=== PATIENT | male | born 2000 | race Caucasian/White ===

== ENCOUNTER 2020-11-10 17:05 | Emergency (ER) | payer OTHER ==
[~2020-11-10] VITALS: Ht 190.5 cm; Wt 112.0 kg
[2020-11-10] MEDS ORDERED: ACETAMINOPHEN 500 MG TAB PO ONE (20:20)
[2020-11-10] MEDS ORDERED: NS 1,000 ML IV ONE (20:20)
[2020-11-10] MEDS ORDERED: METOCLOPRAMIDE INJ 10MG/2ML VIAL (J2765 PER 1) IV ONE (20:20)
[2020-11-10 21:00] VITALS: BP 143/72
[2020-11-10 21:02] LABS: BASO % 0.3 % (0.0-1.0); EOS % 1.1 % (0.0-3.0); HEMATOCRIT 49.6 % (42.0-52.0); HEMOGLOBIN 17.4 g/dl (13.5-17.5); LYMPH # 1.4 10^3/uL (1.5-5.0); LYMPH % 39.4 % (24.0-44.0); MEAN CORPUSCULAR HGB CONC 35.1 g/dl (32.0-36.5); MEAN CORPUSCULAR VOLUME 88.4 fl (80.0-96.0); MONO # 0.3 10^3/uL (0.0-0.8); NEUTROPHILS # 1.8 10^3/uL (1.5-8.5); NEUTROPHILS % 50.9 % (36.0-66.0); PLATELET COUNT, AUTOMATED 170 10^3/uL (150-450); RED BLOOD COUNT 5.61 10^6/uL (4.30-6.10); WHITE BLOOD COUNT 3.5 10^3/uL (4.0-10.0)
[2020-11-10 21:10] LABS: INR 0.98; PROTHROMBIN TIME 13.4 SECONDS (12.7-14.5)
[2020-11-10 21:11] LABS: PARTIAL THROMBOPLASTIN TIME 32.8 SECONDS (25.9-37.0)
[2020-11-10 21:13] LABS: D-DIMER QUANT 288.2 ng/ml (<500)
[2020-11-10 21:36] LABS: ALBUMIN 4.1 GM/DL (3.2-5.2); ALT/SGPT 48 U/L (12-78); BILIRUBIN,DIRECT 0.2 MG/DL (0.0-0.2); BILIRUBIN,TOTAL 0.9 MG/DL (0.2-1.0); BLOOD UREA NITROGEN 14 MG/DL (7-18); CALCIUM LEVEL 8.5 MG/DL (8.5-10.1); CARBON DIOXIDE LEVEL 30 MEQ/L (21-32); CHLORIDE LEVEL 106 MEQ/L (98-107); CREATININE FOR GFR 1.01 MG/DL (0.70-1.30); GLOMERULAR FILTRATION RATE > 60.0 (>60); GLUCOSE, FASTING 99 MG/DL (70-100); LIPASE 70 U/L (73-393); POTASSIUM SERUM 4.3 MEQ/L (3.5-5.1); SODIUM LEVEL 141 MEQ/L (136-145)
[2020-11-10 21:42] LABS: MONO REFLEX EBV COMP NEGATIVE (NEGATIVE)
[2020-11-10 21:59] VITALS: O2SAT 96
--- NOTE | 2020-11-10 21:59 | REPVR ---
PROCEDURE INFORMATION: Exam: XR Chest Exam date and time: 11/10/2020 8:56 PM Age: 20 years old Clinical indication: Shortness of breath; Additional info: Decreased rll, cough x 1 week TECHNIQUE: Imaging protocol: XR of the chest. Views: 2 views. COMPARISON: No relevant prior studies available. FINDINGS: Lungs: Unremarkable. No consolidation. Pleural spaces: Unremarkable. No pleural effusion. No pneumothorax. Heart/Mediastinum: Unremarkable. No cardiomegaly. Bones/joints: Unremarkable. IMPRESSION: No acute findings. Electronically signed by: Lokesh Marino On 11/10/2020 21:59:13 PM
--- NOTE | 2020-11-10 22:00 | REPVR ---
PROCEDURE INFORMATION: Exam: XR Abdomen Exam date and time: 11/10/2020 8:56 PM Age: 20 years old Clinical indication: Nausea and vomiting; Additional info: Decreased bowel sounds, n/v TECHNIQUE: Imaging protocol: XR of the abdomen. Views: Frontal supine view of the abdomen. 1 View. COMPARISON: No relevant prior studies available. FINDINGS: Gastrointestinal tract: Normal. No bowel dilation. Bones/joints: Unremarkable. Incomplete fusion of the right L1 transverse process. IMPRESSION: No acute findings. Electronically signed by: Lokesh Marino On 11/10/2020 21:59:39 PM
[2020-11-13 17:08] LABS: EBV VIRAL CAPSID AG IgM <36.0 U/mL (0.0-35.9); Lyme Disease IgG Ab 18 kDa Ban Absent (.); Lyme Disease IgG Ab 23 kDa Ban Absent (.); Lyme Disease IgG Ab 28 kDa Ban Absent (.); Lyme Disease IgG Ab 30 kDa Ban Absent (.); Lyme Disease IgG Ab 39 kDa Ban Absent (.); Lyme Disease IgG Ab 41 kDa Ban Absent (.); Lyme Disease IgG Ab 45 kDa Ban Absent (.); Lyme Disease IgG Ab 58 kDa Ban Absent (.); Lyme Disease IgG Ab 66 kDa Ban Absent (.); Lyme Disease IgG Ab 93 kDa Ban Absent (.); Lyme Disease IgG West Blot Int Negative (.); Lyme Disease IgG/IgM Antibodie <0.91 ISR (0.00-0.90); Lyme Disease IgM Ab 23 kDa Ban Absent (.); Lyme Disease IgM Ab 39 kDa Ban Absent (.); Lyme Disease IgM Ab 41 kDa Ban Absent (.); Lyme Disease IgM Ab Quantitati 0.97 index (0.00-0.79); Lyme Disease IgM West Blot Int Negative (.)
== END 2020-11-10 22:29 | disposition home or self-care (01) ==
LOC: M ED 17:05
DX: U07.1 COVID-19 (principal); R10.9 Unspecified abdominal pain
CPT/HCPCS: 36415; 71046; 74018; 80047; 80048; 80076; 83605; 83690; 85025; 85379; 85610; 85730; 86308; 86617; 86664; 86665; 87798; 96361; 96374; 99284; J2765